=== PATIENT | female | born 1945 | race Caucasian/White ===

== ENCOUNTER → 2017-01-04 | Outpatient (CLI) | payer MEDICARE, MEDICAID ==
[~2017-01-04] MED LIST: ACET325T47 GT; ACET650S14 PR; BACL10TA GT; BISA10SU8 RC; CALCIUM CARBONATE GT; CRAN425C GT; DIAZ5 GT; FAMO-136 GT; FE RC; FOLI1TAB15 GT; FOLI1TAB24 GT; HYDR20OI TP; MIRALAX GT; MUPI22O TP; ONDA4TAB4 GT; RISP1 GT; VITAD400 GT; VITAMIN C GT; [UNRECOGNIZED DRUG - CODE] GT
== END | disposition home or self-care (01) ==
LOC: RADPV 09:05
PROVIDERS: ATTEND Family Medicine
DX: Z13.820 Encounter for screening for osteoporosis (principal); M81.0 Age-related osteoporosis without current pathological fracture
CPT/HCPCS: 77080

== ENCOUNTER → 2017-09-01 | Outpatient (CLI) | payer MEDICARE, MEDICAID ==
[~2017-09-01] MED LIST changes: +ALEN70TA48 PO; +ASCO500S2 PO; +BISA10SU8 PR; -BISA10SU8 RC; -CALCIUM CARBONATE GT; -CRAN425C GT; +CRAN425C6 GT; -FE RC; -FOLI1TAB24 GT; -HYDR20OI TP; -MIRALAX GT; -MUPI22O TP; -ONDA4TAB4 GT; +OS500 GT; +POLY17PO20 GT; -VITAMIN C GT; -[UNRECOGNIZED DRUG - CODE] GT
== END | disposition home or self-care (01) ==
LOC: RADMN 09:44
PROVIDERS: ATTEND Urology
DX: N20.0 Calculus of kidney (principal); N28.1 Cyst of kidney, acquired; K44.9 Diaphragmatic hernia without obstruction or gangrene; Z93.1 Gastrostomy status
CPT/HCPCS: 74176

== ENCOUNTER → 2019-09-05 | Outpatient (CLI) | payer MEDICARE, MEDICAID ==
[~2019-09-05] MED LIST changes: +ALEN70TA10 PO; -ALEN70TA48 PO; +CHOL400T56 GT; -VITAD400 GT
== END | disposition home or self-care (01) ==
LOC: RADMN 09:50
PROVIDERS: ATTEND Family Medicine
DX: R13.12 Dysphagia, oropharyngeal phase (principal)
CPT/HCPCS: 74230; 92611